=== PATIENT | male | born 1960 | race Caucasian/White ===

== ENCOUNTER 2021-10-26 09:53 | Emergency (ER) | payer MEDICARE, OTHER ==
[2021-10-26] MEDS ORDERED: NS IV 1000 ML 1,000 ML IV STA (10:09)
[2021-10-26 10:15] LABS: BILIRUBIN,URINE NEGATIVE (NEGATIVE); CLARITY,URINE CLEAR; COLOR,URINE YELLOW; GLUCOSE, URINE (UA) TRACE (NEGATIVE); KETONES,URINE NEGATIVE (NEGATIVE); LEUKOCYTE ESTERASE ,URINE NEGATIVE (NEGATIVE); NITRITE,URINE NEGATIVE (NEGATIVE); PROTEIN,URINE 1+ (NEGATIVE)
[2021-10-26 10:17] LABS: BASOPHILS % (AUTO) 0 % (0-10); EOSINOPHILS # (AUTO) 0.1 10^3/uL (0.0-0.3); EOSINOPHILS % (AUTO) 1 % (0-10); HEMATOCRIT 46 % (40-54); HEMOGLOBIN 15.4 g/dL (13.3-17.7); LYMPHOCYTES # (AUTO) 1.8 10^3/uL (1.0-4.0); LYMPHOCYTES % (AUTO) 22 % (12-44); MEAN CORPUSCULAR HEMOGLOBIN 30 pg (25-34); MEAN CORPUSCULAR HGB CONC 34 g/dL (32-36); MEAN CORPUSCULAR VOLUME 87 fL (80-99); MEAN PLATELET VOLUME 11.6 fL (9.0-12.2); MONOCYTES # (AUTO) 0.5 10^3/uL (0.0-1.0); MONOCYTES % (AUTO) 6 % (0-12); NEUTROPHILS # (AUTO) 5.9 10^3/uL (1.8-7.8); NEUTROPHILS % (AUTO) 71 % (42-75); PLATELET COUNT 200 10^3/uL (130-400); WHITE BLOOD COUNT 8.4 10^3/uL (4.3-11.0)
[2021-10-26 10:25] LABS: BACTERIA,URINE NEGATIVE /HPF; RBC,URINE RARE /HPF; WBC,URINE RARE /HPF
--- NOTE | 2021-10-26 10:32 | ED Abdominal Pain ---
General Chief Complaint: Abdominal/GI Problems Stated Complaint: LLQ PAIN Nursing Triage Note: Patient reports he had sudden onset of LLQ abdominal pain that radiated to his RLQ this morning. He reports he is not having any pain right now. He reports a normal BM yesterday. Source of Information: Patient Exam Limitations: No Limitations History of Present Illness Date Seen by Provider: Oct 26, 2021 Time Seen by Provider: 09:53 Initial Comments Here with report of onset of left lower quadrant abdominal pain and feeling a lump there this morning. States it radiated to the right side. This is gone now. Pain is also gone now. Never had anything like this before. Does have history of liver cysts and other cyst in the abdomen. Also has had upper and lower endoscopy and describes having polyps removed that were benign. Denies dysuria or diarrhea. Denies blood in his urine or stool. Last normal bowel movement was yesterday. Timing/Duration: 1-3 Hours, Gone Now Severity/Quality: Moderate, Severe Location: LLQ Radiation: RLQ Activities at Onset: None Modifying Factors: Improves With Resting Associated Symptoms: No Fever/Chills, No Nausea/Vomiting Allergies and Home Medications Allergies Coded Allergies: No Known Drug Allergies (Unverified , 10/26/21) Patient Home Medication List Home Medication List Reviewed: Yes Review of Systems Review of Systems Constitutional: see HPI; No chills, No fever EENTM: No Nose Congestion, No Throat Pain Respiratory: Denies Cough, Denies Shortness of Air Cardiovascular: No Symptoms Reported Gastrointestinal: Abdominal Pain; Denies Constipated, Denies Diarrhea, Denies Nausea, Denies Vomiting Genitourinary: Denies Burning, Denies Hematuria Musculoskeletal: No back pain, No muscle pain Skin: dryness; No lesions Psychiatric/Neurological: No Symptoms Reported All Other Systems Reviewed Negative Unless Noted: Yes Past Qyevywa-Qurrnn-Rsdmhe Hx Patient Social History Tobacco Use?: Yes Tobacco type used: Cigarettes Smoking Status: Current Everyday Smoker Substance use?: Yes Substance type: Marijuana Alcohol Use?: No Pt feels they are or have been: No Past Medical History Surgeries: No Respiratory: No Cardiac: Yes Hypertension Neurological: No Gastrointestinal: Yes (Liver cyst and polyps) Family Medical History Reviewed and Corrections made No Pertinent Family Hx Physical Exam Vital Signs Vital Signs - First Documented 10/26/21 09:57 Temp 36.2 Pulse 75 Resp 18 B/P (MAP) 190/66 (107) Pulse Ox 98 O2 Delivery Room Air Capillary Refill : Less Than 3 Seconds Height/Weight/BMI Height: '" Weight: lbs. oz. kg; BMI Method: General Appearance: WD/WN, no apparent distress HEENT: pharynx normal Neck: full range of motion, supple Respiratory: lungs clear, normal breath sounds Cardiovascular: regular rate, rhythm, no murmur Gastrointestinal: normal bowel sounds, non tender, soft, no pulsatile mass Extremities: non-tender, normal inspection Back: normal inspection, no CVA tenderness, no vertebral tenderness Neurologic/Psychiatric: alert, oriented x 3 Skin: No jaundice; other (Dry skin especially on hands and legs) Progress/Results/Core Measures Results/Orders Lab Results Laboratory Tests Test 10/26/21 09:57 10/26/21 10:10 Range/Units Urine Color YELLOW Urine Clarity CLEAR Urine pH 6.0 5-9 Urine Specific [place] >=1.030 1.016-1.022 Urine Protein 1+ H NEGATIVE Urine Glucose (UA) TRACE H NEGATIVE Urine Ketones NEGATIVE NEGATIVE Urine Nitrite NEGATIVE NEGATIVE Urine Bilirubin NEGATIVE NEGATIVE Urine Urobilinogen 0.2 < = 1.0 MG/DL Urine Leukocyte Esterase NEGATIVE NEGATIVE Urine RBC (Auto) NEGATIVE NEGATIVE Urine RBC RARE /HPF Urine WBC RARE /HPF Urine Squamous Epithelial Cells NONE /HPF Urine Crystals NONE /LPF Urine Bacteria NEGATIVE /HPF Urine Casts NONE /LPF Urine Mucus MODERATE H /LPF Urine Culture Indicated NO White Blood Count 8.4 4.3-11.0 10^3/uL Red Blood Count 5.21 4.30-5.52 10^6/uL Hemoglobin 15.4 13.3-17.7 g/dL Hematocrit 46 40-54 % Mean Corpuscular Volume 87 80-99 fL Mean Corpuscular Hemoglobin 30 25-34 pg Mean Corpuscular Hemoglobin Concent 34 32-36 g/dL Red Cell Distribution Width 13.1 10.0-14.5 % Platelet Count 200 130-400 10^3/uL Mean Platelet Volume 11.6 9.0-12.2 fL Immature Granulocyte % (Auto) 0 % Neutrophils (%) (Auto) 71 42-75 % Lymphocytes (%) (Auto) 22 12-44 % Monocytes (%) (Auto) 6 0-12 % Eosinophils (%) (Auto) 1 0-10 % Basophils (%) (Auto) 0 0-10 % Neutrophils # (Auto) 5.9 1.8-7.8 10^3/uL Lymphocytes # (Auto) 1.8 1.0-4.0 10^3/uL Monocytes # (Auto) 0.5 0.0-1.0 10^3/uL Eosinophils # (Auto) 0.1 0.0-0.3 10^3/uL Basophils # (Auto) 0.0 0.0-0.1 10^3/uL Immature Granulocyte # (Auto) 0.0 0.0-0.1 10^3/uL Sodium Level 142 135-145 MMOL/L Potassium Level 3.9 3.6-5.0 MMOL/L Chloride Level 107 98-107 MMOL/L Carbon Dioxide Level 22 21-32 MMOL/L Anion Gap 13 5-14 MMOL/L Blood Urea Nitrogen 19 H 7-18 MG/DL Creatinine 0.94 0.60-1.30 MG/DL Estimat Glomerular Filtration Rate 92 BUN/Creatinine Ratio 20 Glucose Level 123 H 70-105 MG/DL Calcium Level 9.0 8.5-10.1 MG/DL Corrected Calcium 8.7 8.5-10.1 MG/DL Total Bilirubin 0.3 0.1-1.0 MG/DL Aspartate Amino Transf (AST/SGOT) 14 5-34 U/L Alanine Aminotransferase (ALT/SGPT) 16 0-55 U/L Alkaline Phosphatase 111 40-136 U/L C-Reactive Protein < 0.30 <0.50 MG/DL Total Protein 7.2 6.4-8.2 GM/DL Albumin 4.4 3.2-4.5 GM/DL Smear Scan OK My Orders Orders - ELSI BARON MD Ns Iv 1000 Ml (Sodium Chloride 0.9%) (10/26/21 10:09) Ed Iv/Invasive Line Start (10/26/21 10:09) Cbc With Automated Diff (10/26/21 10:09) Comprehensive Metabolic Panel (10/26/21 10:09) Ua Culture If Indicated (10/26/21 10:09) Crp Fs (10/26/21 10:09) Ct Abdomen/Pelvis W (10/26/21 11:10) Iohexol Injection (Omnipaque 350 Mg/Ml 1 (10/26/21 11:30) Received Contrast (Hold Metformin- Contr (10/26/21 11:30) Ns (Ivpb) (Sodium Chloride 0.9% Ivpb Bag (10/26/21 11:30) Medications Given in ED Current Medications Medications Dose Ordered Sig/Bin Route Start Time Stop Time Status Last Admin Dose Admin Iohexol 150 ml ONCE ONCE IV 10/26/21 11:30 10/26/21 11:31 DC 10/26/21 11:31 100 ML Sodium Chloride 100 ml ONCE ONCE IV 10/26/21 11:30 10/26/21 11:31 DC 10/26/21 11:31 100 ML Vital Signs/I&O 10/26/21 09:57 Temp 36.2 Pulse 75 Resp 18 B/P (MAP) 190/66 (107) Pulse Ox 98 O2 Delivery Room Air Blood Pressure Mean: 107 Progress Progress Note : Progress Note Seen and evaluated. IV, labs and UA ordered. Normal saline [address] scan but pending UA and labs. Denies pain currently so no pain medicine. Monitor patient. 1156: CT complete. There is question of left adrenal nodule which I did discuss with the patient. I also expressed importance of follow-up. I will send a copy of the chart to his primary care provider as he will need nonemergent outpatient follow-up as discussed in CT results below. Overall he is still without pain and feeling better. Discharged home with return precautions. Patient verbalized understanding instructions and agreement with plan. Diagnostic Imaging Diagonstic Imaging: CT Plain Films/CT/US/NM/MRI: abdomen, pelvis Comments NAME: NAVIN [facility]ANG [facility] REC#: [id number] PT STATUS: REG ER : 1960 PHYSICIAN: ELSI BARON MD ADMIT DATE: 10/26/21/ER FS Draft Date of Exam:10/26/21 CT ABDOMEN/PELVIS W CT ABDOMEN/PELVIS W TECHNIQUE: Multiple contiguous axial images were obtained through the abdomen and pelvis after administration of intravenous contrast. All CT scans use one or more of the following dose optimizing techniques: automated exposure control, MA and/or KvP adjustment based on patient size and exam type or iterative reconstruction. INDICATION: Left lower quadrant pain. COMPARISON: None available. FINDINGS: Lower chest: The lung bases are clear. No pericardial or pleural effusion. Peritoneum: No free intraperitoneal air or fluid. Liver and biliary system: A 1.8 x 1.5 cm hypodensity with discontiguous globular enhancement is present in the hepatic dome and compatible with hemangioma. Small arterial-enhancing hemangioma is also present in the inferior left hepatic lobe. The gallbladder is normal. No biliary duct dilation. Spleen and Pancreas: Spleen is normal. Pancreas is normal. Adrenals: There is an indeterminate 1.3 x 1.4 cm solid left adrenal nodule. Right adrenal gland is normal. tract: The kidneys enhance normally without suspicious mass or obstruction. Urinary bladder is distended without wall thickening. Prostate is normal in appearance. No renal or ureteral stones. GI tract: Stomach is decompressed. No bowel obstruction. No pericolonic inflammatory changes. Normal appendix. Vasculature and Lymph nodes: Normal caliber aorta with mild atherosclerotic plaquing. No abdominal or pelvic lymphadenopathy. Musculoskeletal: No concerning osseous lesion. Gamma nail fixates an old healed fracture in the proximal left femur. IMPRESSION: 1. No acute inflammatory process. Specifically, no colitis or diverticulitis. 2. No renal or ureteral stones. 3. Indeterminate left adrenal nodule. Advise follow-up nonemergent CT or MRI of the abdomen without and with IV contrast utilizing the adrenal protocol for further characterization. Dictated on workstation # [id number] Dict: 10/26/21 1137 Trans: 10/26/21 1148 [id number] [id number] Interpreted by: SONJA ELAM MD Electronically signed by: Departure Impression Primary Impression: Left lower quadrant abdominal pain Additional Impression: Adrenal nodule Disposition: 01 HOME, SELF-CARE Condition: Improved Departure-Patient Inst. Decision time for Depature: 11:58 Referrals: LUPE HODGES DO (PCP) Primary Care Physician Patient Instructions: Severe Abdominal Pain, Adult (DC) Add. Discharge Instructions: All discharge instructions reviewed with patient and/or family. Voiced understanding. Drink plenty of fluids and eat a normal diet. You should increase fiber in your diet to decrease risk of constipation. It is very important that you follow-up with your doctor for 2 things. The first thing you need to discuss is your blood pressure as this likely needs to be treated. The second thing you need to discuss is the concern for small adrenal nodule that radiology is recommending nonemergent outpatient testing for. Copy of the chart was sent to Dr. HODGES. Return for worse pain, fever, vomiting, weakness, breathing problems or other concerns as needed. Copy Copies To 1: LUPE HODGES TIMOTHY D MD Oct 26, 2021 10:32
[2021-10-26 10:45] LABS: SMEAR SCAN COMMENT OK
[2021-10-26 11:05] LABS: SODIUM 142 MMOL/L (135-145)
[2021-10-26 11:06] LABS: ALANINE AMINOTRANSFERASE 16 U/L (0-55); ALBUMIN 4.4 GM/DL (3.2-4.5); ALKALINE PHOSPHATASE 111 U/L (40-136); BILIRUBIN,TOTAL 0.3 MG/DL (0.1-1.0); BUN/CREATININE RATIO 20; CARBON DIOXIDE 22 MMOL/L (21-32); CHLORIDE 107 MMOL/L (98-107); CREATININE SERUM 0.94 MG/DL (0.60-1.30); GFR ESTIMATED 92; GLUCOSE 123 MG/DL (70-105); POTASSIUM 3.9 MMOL/L (3.6-5.0); TOTAL PROTEIN 7.2 GM/DL (6.4-8.2)
[2021-10-26] MEDS ORDERED: IOHEXOL 350 MG/ML 150 ML (OMNIPAQUE 350) VIAL IV ONE (11:30)
[2021-10-26] MEDS ORDERED: HOLD METFORMIN - RECEIVED CONTRAST 20 ML VIAL IV SCH (11:30)
[2021-10-26] MEDS ORDERED: NS 100 ML (IVPB) BAG IV ONE (11:30)
--- NOTE | 2021-10-26 11:48 | Diagnostic Imaging Report ---
CT ABDOMEN/PELVIS W TECHNIQUE: Multiple contiguous axial images were obtained through the abdomen and pelvis after administration of intravenous contrast. All CT scans use one or more of the following dose optimizing techniques: automated exposure control, MA and/or KvP adjustment based on patient size and exam type or iterative reconstruction. INDICATION: Left lower quadrant pain. COMPARISON: None available. FINDINGS: Lower chest: The lung bases are clear. No pericardial or pleural effusion. Peritoneum: No free intraperitoneal air or fluid. Liver and biliary system: A 1.8 x 1.5 cm hypodensity with discontiguous globular enhancement is present in the hepatic dome and compatible with hemangioma. Small arterial-enhancing hemangioma is also present in the inferior left hepatic lobe. The gallbladder is normal. No biliary duct dilation. Spleen and Pancreas: Spleen is normal. Pancreas is normal. Adrenals: There is an indeterminate 1.3 x 1.4 cm solid left adrenal nodule. Right adrenal gland is normal. tract: The kidneys enhance normally without suspicious mass or obstruction. Urinary bladder is distended without wall thickening. Prostate is normal in appearance. No renal or ureteral stones. GI tract: Stomach is decompressed. No bowel obstruction. No pericolonic inflammatory changes. Normal appendix. Vasculature and Lymph nodes: Normal caliber aorta with mild atherosclerotic plaquing. No abdominal or pelvic lymphadenopathy. Musculoskeletal: No concerning osseous lesion. Gamma nail fixates an old healed fracture in the proximal left femur. IMPRESSION: 1. No acute inflammatory process. Specifically, no colitis or diverticulitis. 2. No renal or ureteral stones. 3. Indeterminate left adrenal nodule. Advise follow-up nonemergent CT or MRI of the abdomen without and with IV contrast utilizing the adrenal protocol for further characterization. Dictated by: Dictated on workstation # [id number]
[2021-10-26 12:02] VITALS: BP 171/88
== END 2021-10-26 12:05 | disposition home or self-care (01) ==
LOC: ER FS 09:55
DX: R10.32 Left lower quadrant pain (principal); E27.9 Disorder of adrenal gland, unspecified; I10 Essential (primary) hypertension; F17.210 Nicotine dependence, cigarettes, uncomplicated
CPT/HCPCS: 36415; 74177; 80053; 81000; 85025; 86141

== ENCOUNTER 2021-12-20 15:24 | Emergency (ER) | payer MEDICARE ==
[~2021-12-20] VITALS: Ht 157 cm; Wt 75.0 kg
[2021-12-20 15:51] LABS: BASOPHILS % (AUTO) 0 % (0-10); EOSINOPHILS # (AUTO) 0.1 10^3/uL (0.0-0.3); EOSINOPHILS % (AUTO) 1 % (0-10); HEMATOCRIT 42 % (40-54); HEMOGLOBIN 14.3 g/dL (13.3-17.7); LYMPHOCYTES # (AUTO) 1.9 10^3/uL (1.0-4.0); LYMPHOCYTES % (AUTO) 27 % (12-44); MEAN CORPUSCULAR HEMOGLOBIN 30 pg (25-34); MEAN CORPUSCULAR HGB CONC 34 g/dL (32-36); MEAN CORPUSCULAR VOLUME 87 fL (80-99); MEAN PLATELET VOLUME 11.4 fL (9.0-12.2); MONOCYTES # (AUTO) 0.4 10^3/uL (0.0-1.0); MONOCYTES % (AUTO) 6 % (0-12); NEUTROPHILS # (AUTO) 4.6 10^3/uL (1.8-7.8); NEUTROPHILS % (AUTO) 66 % (42-75); PLATELET COUNT 217 10^3/uL (130-400)
[2021-12-20 16:23] LABS: CREATININE SERUM 1.09 MG/DL (0.60-1.30); POTASSIUM 4.2 MMOL/L (3.6-5.0)
[2021-12-20 16:24] LABS: ALBUMIN 4.2 GM/DL (3.2-4.5); BILIRUBIN,TOTAL 0.5 MG/DL (0.1-1.0); CALCIUM 8.9 MG/DL (8.5-10.1); MAGNESIUM 2.2 MG/DL (1.6-2.4); TOTAL PROTEIN 6.6 GM/DL (6.4-8.2)
--- NOTE | 2021-12-20 17:42 | ED Chest Pain ---
General Chief Complaint: Chest Pain Stated Complaint: CP Source: patient, EMS History of Present Illness Date Seen by Provider: Dec 20, 2021 Time Seen by Provider: 17:22 Initial Comments 61-year-old male presenting by EMS with complaints of burning chest pain. He also has had intermittently elevated blood pressure. He has been having similar symptoms for several months and been evaluated in [place] as well as [place]. He has had cardiac stress test in [place] and been admitted previously in [place] as well. He has followed up with Dr. Stewart but still does not have an answer for his symptoms. When he had his burning chest pain and elevated blood pressure again today his girlfriend insisted that he come be evaluated. Patient states there is nothing that causes the burning chest pain to start and there is also nothing that makes it go away. Severity/Quality: mild, burning Location: substernal Radiation: no radiation Activities at Onset: none Prior CP/Workup: stress test ASA po CLINICAL QUALITY RN: No NTG SL CLINICAL QUALITY RN: No Associated Symptoms: No abdominal pain, No back pain, No diaphoresis, No dizziness, No edema, No fatigue, No fever/chills, No headache, No heartburn, No nausea/vomiting, No rash, No shortness of breath, No swelling/lump in chest, No syncope, No weakness Allergies and Home Medications Allergies Coded Allergies: No Known Drug Allergies (Unverified , 10/26/21) Patient Home Medication List Home Medication List Reviewed: Yes Review of Systems Review of Systems Constitutional: no symptoms reported EENTM: No Symptoms Reported Respiratory: See HPI Cardiovascular: See HPI Gastrointestinal: No Symptoms Reported Genitourinary: No Symptoms Reported Musculoskeletal: no symptoms reported Skin: no symptoms reported Psychiatric/Neurological: No Symptoms Reported Endocrine: No Symptoms Reported Past Vcfgjox-Coxrkt-Jinpjx Hx Patient Social History Tobacco Use?: Yes Substance use?: No Alcohol Use?: Yes Past Medical History Surgery/Hospitalization HX: Hypertension, Gerd Surgeries: No Respiratory: No Cardiac: Yes Hypertension Neurological: No Gastrointestinal: Yes (Liver cyst and polyps) Family Medical History No Pertinent Family Hx Physical Exam Vital Signs Vital Signs - First Documented 12/20/21 17:48 Temp 37.2 Pulse 58 Resp 15 B/P (MAP) 141/73 (95) Pulse Ox 98 O2 Delivery Room Air Capillary Refill : Height, Weight, BMI Height: '" Weight: lbs. oz. kg; BMI Method: General Appearance: No Apparent Distress, Other (disheveled and unkempt) HEENT: PERRL/EOMI, Pharynx Normal, Moist Mucous Membranes Neck: Full Range of Motion, Normal Inspection, Non Tender, Supple Respiratory: Chest Non Tender, Lungs Clear, Normal Breath Sounds, No Accessory Muscle Use, No Respiratory Distress Cardiovascular: Regular Rate, Rhythm, Normal Peripheral Pulses Gastrointestinal: Normal Bowel Sounds, No Pulsatile Mass, Non Tender, Soft Rectal: Deferred Extremity: Normal Capillary Refill, Normal Inspection, Normal Range of Motion, No Calf Tenderness, No Pedal Edema Neurologic/Psychiatric: Alert, Oriented x3, manager transfusion II-XII Norm as Tested Skin: Normal Color, Warm/Dry Progress/Results/Core Measures Results/Orders Lab Results Laboratory Tests Test 12/20/21 15:40 Range/Units White Blood Count 7.0 4.3-11.0 10^3/uL Red Blood Count 4.81 4.30-5.52 10^6/uL Hemoglobin 14.3 13.3-17.7 g/dL Hematocrit 42 40-54 % Mean Corpuscular Volume 87 80-99 fL Mean Corpuscular Hemoglobin 30 25-34 pg Mean Corpuscular Hemoglobin Concent 34 32-36 g/dL Red Cell Distribution Width 12.5 10.0-14.5 % Platelet Count 217 130-400 10^3/uL Mean Platelet Volume 11.4 9.0-12.2 fL Immature Granulocyte % (Auto) 1 % Neutrophils (%) (Auto) 66 42-75 % Lymphocytes (%) (Auto) 27 12-44 % Monocytes (%) (Auto) 6 0-12 % Eosinophils (%) (Auto) 1 0-10 % Basophils (%) (Auto) 0 0-10 % Neutrophils # (Auto) 4.6 1.8-7.8 10^3/uL Lymphocytes # (Auto) 1.9 1.0-4.0 10^3/uL Monocytes # (Auto) 0.4 0.0-1.0 10^3/uL Eosinophils # (Auto) 0.1 0.0-0.3 10^3/uL Basophils # (Auto) 0.0 0.0-0.1 10^3/uL Immature Granulocyte # (Auto) 0.0 0.0-0.1 10^3/uL Prothrombin Time 14.0 12.2-14.7 SEC INR Comment 1.0 0.8-1.4 Activated Partial Thromboplast Time 27 24-35 SEC Sodium Level 141 135-145 MMOL/L Potassium Level 4.2 3.6-5.0 MMOL/L Chloride Level 106 98-107 MMOL/L Carbon Dioxide Level 24 21-32 MMOL/L Anion Gap 11 5-14 MMOL/L Blood Urea Nitrogen 21 H 7-18 MG/DL Creatinine 1.09 0.60-1.30 MG/DL Estimat Glomerular Filtration Rate 76 BUN/Creatinine Ratio 19 Glucose Level 132 H 70-105 MG/DL Calcium Level 8.9 8.5-10.1 MG/DL Corrected Calcium 8.7 8.5-10.1 MG/DL Magnesium Level 2.2 1.6-2.4 MG/DL Total Bilirubin 0.5 0.1-1.0 MG/DL Aspartate Amino Transf (AST/SGOT) 14 5-34 U/L Alanine Aminotransferase (ALT/SGPT) 27 0-55 U/L Alkaline Phosphatase 97 40-136 U/L Myoglobin 31.6 10.0-92.0 NG/ML Troponin I < 0.30 <0.30 NG/ML Pro-B-Type Natriuretic Peptide 30.7 <75.0 PG/ML Total Protein 6.6 6.4-8.2 GM/DL Albumin 4.2 3.2-4.5 GM/DL Lipase 27 8-78 U/L My Orders Orders - ELIJAH KERN MD Cbc With Automated Diff (12/20/21 15:28) Magnesium (12/20/21 15:28) Ekg Tracing (12/20/21 15:28) Comprehensive Metabolic Panel (12/20/21 15:28) Myoglobin Serum (12/20/21 15:28) Protime With Inr (12/20/21 15:28) Partial Thromboplastin Time (12/20/21 15:28) O2 (12/20/21 15:28) Monitor-Rhythm Ecg Trace Only (12/20/21 15:28) Ed Iv/Invasive Line Start (12/20/21 15:28) Lipase (12/20/21 15:28) Troponin I Fs (12/20/21 15:28) Probnp Fs (12/20/21 15:28) Vital Signs/I&O 12/20/21 12/20/21 17:48 17:48 Temp 37.2 Pulse 58 57 Resp 15 15 B/P (MAP) 141/73 (95) 130/69 Pulse Ox 98 100 O2 Delivery Room Air Room Air Progress Progress Note #1: Progress Note Obtain electrocardiogram as well as basic labs and blood work. Since he has had recent evaluation more extensive than what is available here in the emergency department will defer repeating an x-ray of his chest. Progress Note #2: Progress Note Electrocardiogram shows sinus rhythm without ST elevation. He does not have prior tracing for comparison. His labs are all stable without acute significant abnormality. His cardiac enzymes are negative considering he has had pain at home throughout the morning his enzymes are elevated but now if he was having [place]. Encourage patient to follow-up through Dr. STEWART as well as cardiology. I advised him that I could not give him an answer for his burning chest pain or why his blood pressure fluctuated so much. I told him that if he wanted to be re-admitted to a hospital somewhere I could call to see about a rranging transfer to a hospital for yet another evaluation. I reassured him that if the cardiology doctors in [place] did stress testing and evaluated him with tests beyond what I have here and they did not feel he needed to have any emergent interventions that is reassuring but he needs to work with Dr. Stewart and cardiology for continued evaluation and if he is not happy with [place] [employer] have his doctor refer him to a new green ware caster. Initial ECG Impression Date: Dec 20, 2021 Initial ECG Impression Time: 15:36 Initial ECG Rate: 62 Initial ECG Rhythm: Normal Sinus Initial ECG Comparisson: No Previous ECG Available Comment Normal sinus rhythm with a heart rate of 62 bpm. OK interval [address] elevation. QT interval 381 ms with a QTc interval 387 ms. No prior tracing available for comparison. Departure Impression Primary Impression: Burning chest pain Additional Impression: Labile hypertension Disposition: 01 HOME, SELF-CARE Condition: Stable Departure-Patient Inst. Decision time for Depature: 17:41 Referrals: LUPE STEWART DO (PCP) Primary Care Physician Patient Instructions: High Blood Pressure ED, Chest Pain, Adult ED Add. Discharge Instructions: Your test to check your heart today did not show signs of heart attack or heart failure. Your blood pressure came down on its own along with you resting in the bed. Continue to work with Dr. STEWART and follow-up with cardiology for continued evaluation and work-up of your symptoms. If you have worsening symptoms and concerns you could be reevaluated. All discharge instructions reviewed with patient and/or family. Voiced understanding. ELIJAH KERN MD Dec 20, 2021 17:42
[2021-12-20 17:48] VITALS: BP 141/73
== END 2021-12-20 17:50 | disposition home or self-care (01) ==
LOC: EDUNIT# 15:24 → ER FS 15:25
DX: R07.89 Other chest pain (principal); R03.0 Elevated blood-pressure reading, without diagnosis of hypertension; Z72.0 Tobacco use
CPT/HCPCS: 36415; 80053; 83690; 83735; 83874; 83880; 84484; 85025; 85610; 85730; 93005